=== PATIENT | male | born 1990 | race African-American/Black ===

== ENCOUNTER 2020-10-11 15:26 | Emergency (ER) | payer SELFPAY ==
[~2020-10-11] VITALS: Ht 165.1 cm; Wt 68.2 kg
--- NOTE | 2020-10-11 15:39 | PHYS DOC ---
Past History Past Medical History: Other (TRANSGENDER ON TESTOSTERONE THERAPY) Adult General Chief Complaint Chief Complaint: CHEST PAIN HPI HPI Patient is a 29-year-old transgender male presenting for chest pain. Onset was approximately 4 hours prior to arrival without any known inciting event and/or trauma. Nothing known makes better or worse. Pain described as substernal in nature and does not radiate, is typically 8 out of 10 in severity during episodes. Timing of symptoms waxes and wanes, episodes last less than 1 hour and resolve on their own. Patient has long history of this, states these episodes are usually anxiety/stress induced. He does admit to increased stress recently as he recently relocated to our region. Denies any fever, URI-like symptoms, shortness of breath, cough, abdominal pain, changes in urination and/or defecation. Of note, patient states he is transgender and is currently on testosterone therapy. Denies any personal cardiac history or familial cardiac history, has never passed out during exercise Review of Systems Review of Systems Fourteen body systems of review of systems have been reviewed. See HPI for pertinent positives and negative responses, other damico all other systems are negative, non-pertinent or non-contributory Physical Exam Physical Exam Constitutional: Well developed, well nourished, no acute distress, non-toxic appearance. HENT: Normocephalic, atraumatic, bilateral external ears normal, oropharynx moist, no oral exudates, nose normal. Eyes: PERRLA, EOMI, conjunctiva normal, no discharge. Neck: Normal range of motion, no tenderness, supple, no stridor. Cardiovascular: Heart rate regular, sinus rhythm, no murmurs rubs or gallops Lungs & Thorax: Bilateral breath sounds clear to auscultation Abdomen: Bowel sounds normal, soft, no tenderness, no masses, no pulsatile masses. Nonsurgical abdomen, no peritoneal signs Skin: Warm, dry, no erythema, no rash. Back: No tenderness, no CVA tenderness. Extremities: No tenderness, no cyanosis, no clubbing, ROM intact, no edema. Neurologic: Alert and oriented X 3, grossly normal motor & sensory function, no focal deficits noted. Psychologic: Affect normal, judgement normal, mood normal. Current Patient Data Vital Signs Vital Signs Date Time Temp Pulse Resp B/P (MAP) Pulse Ox O2 Delivery O2 Flow Rate FiO2 11/28/20 15:46 98.1 95 18 134/88 (103) 100 EKG EKG EKG ordered and interpreted by myself at 1538 hrs. as sinus rhythm at 64 bpm, unremarkable intervals, no axis deviation, no acute ischemic findings, no STEMI Radiology/Procedures Radiology/Procedures EXAM: CHEST AP ONLY INDICATION: Reason: chest pain / Spl. Instructions: / History: . TECHNIQUE: Portable AP single view COMPARISON: None FINDINGS: The heart size is normal. The great vessels appear unremarkable. There is no hilar or mediastinal mass. The lungs are clear. There is no pleural effusion or pneumothorax. There are no significant osseous abnormalities. Surgical clips are present over the bilateral lower chest. IMPRESSION: No active cardiopulmonary disease. Electronically signed by: Tariq Cruz MD (10/11/2020 3:58 PM) [id number] Heart Score HEART Score for Chest Pain: HEART Score for Chest Pain Response (Comments) Value History Slighlty/Non-Suspicious 0 ECG Normal 0 Age < 45 0 Risk Factors 1 or 2 Risk Factors 1 Total 1 Risk Factors: Risk Factors: DM, Current or recent (<one month) smoker, HTN, HLP, family history of CAD, obesity. Risk Scores: Risk Factors: DM, Current or recent (<one month) smoker, HTN, HLP, family history of CAD, obesity. Course & Med Decision Making Course & Med Decision Making Pertinent Labs and Imaging studies reviewed. (See chart for details) Discussed most likely diagnosis of atypical chest pain. I discussed little indication for further ER work-up I advised patient to establish with local PCP to follow-up on his ongoing atypical chest pain that is likely anxiety induced in nature. I did disclose this might be an acute presentation more concerning pathology and so, close monitoring of symptoms and outpatient follow-up advised Strict return precautions were discussed with good understanding by patient, all questions and concerns addressed prior to ER departure in stable condition Dragon Disclaimer Dragon Disclaimer This electronic medical record was generated, in whole or in part, using a voice recognition dictation system. Departure Departure: Impression: Primary Impression: Atypical chest pain Disposition: 01 DC HOME SELF CARE/HOMELESS Condition: STABLE Referrals: HARJIT MYLES MD (PCP) Patient Instructions: Chest Pain (Nonspecific) Additional Instructions: As instructed prior to ER departure, please use attached list of local resources to call and schedule outpatient primary care follow-up for your ER visit today in addition to establish care As discussed, you would likely benefit from continued outpatient provocative cardiac work-up in addition to having your testosterone levels rechecked If any concerning signs or symptoms present prior to outpatient follow-up please do not hesitate to come back for repeat evaluation Is a pleasure to take care of you today and I wish you a speedy recovery! DAVID KILPATRICK DO Oct 11, 2020 15:39
[2020-10-11 15:46] VITALS: BP 134/88
--- NOTE | 2020-10-11 16:00 | RAD ---
EXAM: CHEST AP ONLY INDICATION: Reason: chest pain / Spl. Instructions: / History: . TECHNIQUE: Portable AP single view COMPARISON: None FINDINGS: The heart size is normal. The great vessels appear unremarkable. There is no hilar or mediastinal mass. The lungs are clear. There is no pleural effusion or pneumothorax. There are no significant osseous abnormalities. Surgical clips are present over the bilateral lower chest. IMPRESSION: No active cardiopulmonary disease. Electronically signed by: Tariq Cruz MD (10/11/2020 3:58 PM) [id number]
--- NOTE | 2020-10-11 16:46 | EKG ---
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
== END 2020-10-11 17:30 | disposition home or self-care (01) ==
LOC: ER 15:26
DX: R07.2 Precordial pain (principal); F43.9 Reaction to severe stress, unspecified
CPT/HCPCS: 71045; 93005; 99283

== ENCOUNTER → 2020-12-31 | Outpatient (CLI) | payer OTHER ==
[2020-12-31 10:22] LABS: BASO % 1 % (0-3); EOS % 1 % (0-3); HEMATOCRIT 46.8 % (39.0-53.0); HEMOGLOBIN 15.1 g/dL (13.0-17.5); LYMPH # 2.4 x10^3/uL (1.0-4.8); LYMPH % 28 % (24-48); MEAN CORPUSCULAR HEMOGLOBIN 28 pg (25-35); MEAN CORPUSCULAR HGB CONC 32 g/dL (31-37); MEAN CORPUSCULAR VOLUME 88 fL (79-100); MONO # 0.6 x10^3/uL (0.0-1.1); MONO % 7 % (0-9); NEUT # 5.5 x10^3uL (1.8-7.7); NEUT % 64 % (31-73); PLATELET COUNT 255 x10^3/uL (140-400); RED BLOOD COUNT 5.34 x10^6/uL (4.30-5.70); WHITE BLOOD COUNT 8.6 x10^3/uL (4.0-11.0)
[2020-12-31 10:40] LABS: ALBUMIN 3.9 g/dL (3.4-5.0); ALBUMIN/GLOBULIN RATIO 1.1 (1.0-1.7); C REACTIVE PROTEIN 1.1 mg/L (0-3.3); CALCIUM 9.2 mg/dL (8.5-10.1); GFR 104.8; MAGNESIUM 1.8 mg/dL (1.8-2.4); TOTAL BILIRUBIN 0.6 mg/dL (0.2-1.0); TOTAL PROTEIN 7.4 g/dL (6.4-8.2)
[2021-01-01 12:01] LABS: THYROID STIM HORMONE (TSH) 1.21 uIU/mL (0.358-3.740)
== END ==
LOC: LAB 08:55
PROVIDERS: ATTEND Internal Medicine Cardiovascular Disease
DX: R07.9 Chest pain, unspecified (principal)
CPT/HCPCS: 36415; 80053; 80061; 82607; 82746; 83735; 84443; 85025; 86140

== ENCOUNTER → 2021-01-03 | Outpatient (CLI) | payer OTHER ==
[2021-01-07 08:09] LABS: TESTOSTERONE FREE 60.52 ng/dL (5.00-21.00); TESTOSTERONE TOTAL 1476 ng/dL (264-916)
== END ==
LOC: LAB 09:56
PROVIDERS: ATTEND Family Medicine
DX: F64.9 Gender identity disorder, unspecified (principal); Z68.28 Body mass index [BMI] 28.0-28.9, adult
CPT/HCPCS: 36415; 84402; 84403

== ENCOUNTER → 2021-03-03 | Outpatient (CLI) | payer OTHER ==
--- NOTE | 2021-03-03 17:53 | CARD ---
MR#: [id number] Date of Study: 03/03/2021 Ordering Physician: DAVID LOYOLA, Referring Physician: DAVID LOYOLA, Tech: Marimar Desai BRIGHT APPROVED REPORT EXAM: Two-dimensional and M-mode echocardiogram with Doppler and color Doppler. Other Information Quality : Good INDICATION Chest Pain 2D DIMENSIONS RVDd2.2 (2.9-3.5cm)Left Atrium(2D)2.6 (1.6-4.0cm) IVSd0.6 (0.7-1.1cm)Aortic Root(2D)2.5 (2.0-3.7cm) LVDd4.6 (3.9-5.9cm)LVOT Diameter1.9 (1.8-2.4cm) PWd0.7 (0.7-1.1cm)LVDs2.8 (2.5-4.0cm) FS (%) 37.8 %SV65.3 ml LVEF(%)60.0 (>50%) Aortic Valve AoV Peak Elliott.108.9cm/sAoV VTI23.0cm AO Peak GR.4.7mmHgLVOT Peak Elliott.103.4cm/s LVOT VTI 22.45cmAO Mean GR.3mmHg JAMAAL (VMAX)2.19gf2NOK (VTI)2.69cm2 Mitral Valve MV E Qkkpzkss05.0cm/sMV DECEL [id number] MV A Dsvcbarc60.7cm/sE/A Ratio1.7 LEFT VENTRICLE The left ventricle is normal size. There is normal left ventricular wall thickness. The left ventricu lar systolic function is normal and the ejection fraction is within normal range. The Ejection Fracti on is 55-60%. There is normal LV segmental wall motion. The left ventricular diastolic function and f illing is normal for age. RIGHT VENTRICLE The right ventricle is normal size. The right ventricular systolic function is normal. ATRIA The left atrium size is normal. The right atrium size is normal. The interatrial septum is intact wit h no evidence for an atrial septal defect or patent foramen ovale as noted on 2-D or Doppler imaging. AORTIC VALVE The aortic valve is normal in structure and function. Doppler and Color Flow revealed no significant aortic regurgitation. There is no significant aortic valvular stenosis. MITRAL VALVE The mitral valve is normal in structure and function. There is no evidence of mitral valve prolapse. There is no mitral valve stenosis. Doppler and Color-flow revealed trace mitral regurgitation. TRICUSPID VALVE The tricuspid valve is normal in structure and function. Doppler and Color Flow revealed no tricuspid valve regurgitation noted. There is no tricuspid valve stenosis. PULMONIC VALVE The pulmonary valve is normal in structure and function. Doppler and Color Flow revealed trace pulmon ic valvular regurgitation. There is no pulmonic valvular stenosis. GREAT VESSELS The aortic root is normal in size. The ascending aorta is normal in size. The IVC is normal in size a nd collapses >50% with inspiration. PERICARDIAL EFFUSION There is no evidence of significant pericardial effusion. Critical Notification Critical Value: No <Conclusion> The left ventricular systolic function is normal and the ejection fraction is within normal range. Th e Ejection Fraction is 55-60%. There is normal LV segmental wall motion. Signed by : David Loyola, Electronically Approved : 03/03/2021 17:53:13
== END ==
LOC: ECHO 13:59
PROVIDERS: ATTEND Internal Medicine Cardiovascular Disease
DX: R07.9 Chest pain, unspecified (principal)
CPT/HCPCS: 93306

== ENCOUNTER → 2021-05-10 | Outpatient (CLI) | payer OTHER ==
[2021-05-10 09:46] LABS: COLOR,URINE YELLOW
[2021-05-10 09:47] LABS: BACTERIA,URINE MOD /HPF (0-FEW); BILIRUBIN,URINE NEG (NEG); CLARITY,URINE HAZY; GLUCOSE,URINE NEG (NEG); NITRITE,URINE NEG (NEG); RBC,URINE RARE /HPF (0-2); SQUAMOUS EPITHELIAL CELL,UR MANY /LPF; UROBILINOGEN,URINE 0.2 mg/dL (0.2 mg/dL)
== END ==
LOC: LAB 08:56
PROVIDERS: ATTEND Nurse Practitioner Family
DX: R30.0 Dysuria (principal); Z20.2 Contact with and (suspected) exposure to infections with a predominantly sexual mode of transmission
CPT/HCPCS: 36415; 81001; 86592; 86695; 86696; 86703; 86705; 86709; 86803; 87086; 87340; 87491; 87591

== ENCOUNTER → 2021-06-11 | Outpatient (CLI) | payer OTHER ==
[2021-06-11 11:11] LABS: BASO # 0.1 x10^3/uL (0.0-0.2); BASO % 1 % (0-3); EOS # 0.1 x10^3/uL (0.0-0.7); EOS % 1 % (0-3); HEMATOCRIT 44.4 % (39.0-53.0); HEMOGLOBIN 14.3 g/dL (13.0-17.5); LYMPH # 2.9 x10^3/uL (1.0-4.8); LYMPH % 42 % (24-48); MEAN CORPUSCULAR HEMOGLOBIN 29 pg (25-35); MEAN CORPUSCULAR HGB CONC 32 g/dL (31-37); MEAN CORPUSCULAR VOLUME 89 fL (79-100); MONO # 0.5 x10^3/uL (0.0-1.1); MONO % 7 % (0-9); NEUT # 3.4 x10^3uL (1.8-7.7); NEUT % 50 % (31-73); PLATELET COUNT 229 x10^3/uL (140-400); RED BLOOD COUNT 4.98 x10^6/uL (4.30-5.70); RED CELL DISTRIBUTION WIDTH 13.3 % (11.5-14.5); WHITE BLOOD COUNT 6.8 x10^3/uL (4.0-11.0)
[2021-06-11 23:06] LABS: TESTOSTERONE TOTAL 417 ng/dL (264-916)
== END ==
LOC: LAB 09:19
PROVIDERS: ATTEND Internal Medicine Endocrinology, Diabetes & Metabolism
DX: E34.9 Endocrine disorder, unspecified (principal); F64.0 Transsexualism
CPT/HCPCS: 36415; 84403; 85025

== ENCOUNTER → 2021-07-06 | Outpatient (CLI) | payer OTHER ==
--- NOTE | 2021-07-06 08:52 | RAD ---
EXAM: Chest, 2 views. HISTORY: Cough. COMPARISON: 10/11/2020 FINDINGS: 2 views of chest are obtained. There is no infiltrate, pleural effusion or pneumothorax. Th e heart is normal in size. There are surgical clips overlying the bilateral anterior chest wall. IMPRESSION: No acute pulmonary finding. Electronically signed by: Honey Parrish MD (07/06/2021 8:50 AM) [id number]
== END ==
LOC: RAD 08:29
PROVIDERS: ATTEND Nurse Practitioner Family
DX: R05 Cough (principal)
CPT/HCPCS: 71046